=== PATIENT | male | born 2000 | race Caucasian/White ===

== ENCOUNTER 2020-04-22 20:35 | Emergency (ER) | payer OTHER ==
[~2020-04-22] VITALS: Ht 188 cm; Wt 72.7 kg
[2020-04-22 20:46] VITALS: BP 148/87; TEMP 97.7
[2020-04-22 22:29] VITALS: PULSE 82
== END 2020-04-22 22:30 | disposition home or self-care (01) ==
LOC: COL.ER 20:35
DX: R06.02 Shortness of breath (principal); Z88.1 Allergy status to other antibiotic agents

== ENCOUNTER 2022-12-11 17:59 | Emergency (ER) | payer OTHER ==
[~2022-12-11] VITALS: Ht 190.5 cm; Wt 79.5 kg
[~2022-12-11 17:59] MED LIST: MOTRIN 400400 MG/TAB PO; ZOFRAN 4MG T4 MG/TAB PO
[2022-12-11 18:03] VITALS: TEMP 98.2
[2022-12-11] MEDS ORDERED: COMPAZINE 110 MG/TAB PO (18:39)
[2022-12-11 19:16] VITALS: BP 118/76; PULSE 70
== END 2022-12-11 19:17 | disposition home or self-care (01) ==
LOC: COL.ER 17:59
DX: S06.0X0A Concussion without loss of consciousness, initial encounter (principal); W22.8XXA Striking against or struck by other objects, initial encounter; Y93.72 Activity, wrestling